=== PATIENT | female | born 1995 | race Caucasian/White ===

== ENCOUNTER 2019-09-25 11:26 | Emergency (ER) | payer OTHER, SELFPAY ==
--- NOTE | 2019-09-25 11:37 | DI.RAD.S_ITS ---
PROCEDURE: XR SOFT TISSUE NECK INDICATIONS: exernal anterior throat pain, sublingual px TECHNIQUE: 2 views of the neck were acquired. COMPARISON: None. FINDINGS: Airway: The airway appears patent. Soft tissues: Prevertebral soft tissues are normal in thickness. The epiglottis and aryepiglottic folds appear normal. No soft tissue gas. Bones: No suspicious bony lesions. Visualized cervical spine is normally aligned. IMPRESSION: Unremarkable exam. If concern persists, CT neck with contrast is recommended for further evaluation. Dictated by: Brittney Betts M.D. on 09/25/2019 at 12:10 Approved by: Brittney Betts M.D. on 09/25/2019 at 12:13
[2019-09-25 11:38] VITALS: BP 134/78; PULSE 72; RESP 14; TEMP 36.9; O2SAT 97; BMI 28.3
--- NOTE | 2019-09-25 11:41 | ED_ITS ---
HPI - Neck Pain/Injury <MATTHEW Sarmiento - Last Filed: 09/25/19 14:38> General Chief Complaint: Upper Respiratory Symptoms Stated Complaint: throat pain/tender to touch Time Seen by Provider: 09/25/19 11:30 History of Present Illness HPI Narrative: 23yo female who is currently breast-feeding, presents emergency department complaining of external anterior throat pain in sublingual pain for the past 2 days. Patient states the area is tender to touch. She denies any difficulty breathing, feelings of throat swelling, drooling, difficulty swallowing, wheezing, fevers, chills, nausea, vomiting, diarrhea, or any other concerns. She denies any trauma to the area. Patient denies any history of asthma or allergies. Patient states the pain is a constant dull aching and occasionally sharp stabbing the without aggravation by eating or swelling. Patient did note that when she woke up this morning she felt like her force was hoarse. Patient states she took Tylenol which has helped a small amount. Patient denies remembering anything being stuck in her throat, denies choking, or any other concerns. Patient denies any history of thyroid issues. Related Data Allergies Allergy/AdvReac Type Severity Reaction Status Date / Time amoxicillin Allergy Hives Verified 09/25/19 11:38 ciprofloxacin [From Cipro] Allergy Hives Verified 09/25/19 11:38 Penicillins Allergy Hives Verified 09/25/19 11:38 Review of Systems <MATTHEW Sarmiento - Last Filed: 09/25/19 14:38> Review of Systems Narrative: REVIEW OF SYSTEMS: GENERAL: Denies fevers. HENT: No head trauma or hearing loss. Complains of external throat pain, see HPI. EYES: No loss of vision, double vision, eye pain, irritation or discharge. CARDIOVASCULAR: No chest pain or syncope. RESPIRATORY: No shortness of breath. GASTROINTESTINAL: No nausea, vomiting, diarrhea, or constipation. MUSCULOSKELETAL: No weakness or injury. INTEGUMENTARY: No rash, lesions, or pruritus. NEURO: No memory loss, or confusion. Patient History <MATTHEW Sarmiento - Last Filed: 09/25/19 14:38> Medical History Renal calculi (Acute) Tonsillectomy planned (Acute) Social History Smoking Status: Never smoker Smoking Status: Never smoker Exam <MATTHEW Sarmiento - Last Filed: 09/25/19 14:38> Initial Vital Signs Initial Vital Signs: Vital Signs Temperature 98.4 F 09/25/19 11:38 Pulse Rate 72 09/25/19 11:38 Respiratory Rate 14 09/25/19 11:38 Blood Pressure 134/78 09/25/19 11:38 Pulse Oximetry 97 09/25/19 11:38 PHYSICAL EXAMINATION: GENERAL: Well groomed, alert, and cooperative. Answers questions promptly and appropriately. Vital signs noted. HENT: Normocephalic, atraumatic. Ear canals patent. Oropharynx slight erythema, Tonsils are not present. Uvula midline, pronates. Patient notes tenderness with palpation to the sublingual area and upper anterior throat. No lymphadenopathy. No thyroid nodules or swelling noted. No erythema to the skin. EYES: Conjunctiva pink, sclera white, no periorbital swelling. No discharge. CHEST: Normal to inspection and without deformities. CARDIOVASCULAR: S1 and S2 sounds normal. Regular rate and rhythm, no murmurs, clicks, or bruits. RESPIRATORY: Normal respiratory rate, trachea midline, airway patent. No stridor, nasal flaring or accessory muscle use. Able to speak in full sentences. Lungs are clear in all miller without wheeze, rhonchi, or crackles. Patient talks in a clear voice, no hoarseness noted. MUSCULOSKELETAL: Normal gait and coordination. Equal tone and mass bilaterally. EXTREMITIES: Moves all extremities. SKIN: Warm, dry, soft, appropriate color for ethnicity. No lesions, rashes, or wounds to visualized areas. NEURO: Alert and Oriented X 3. Good coordination. No ataxia or cognitive issues. PSYCH: Appropriate affect and mood. <Ric Stratton DO - Last Filed: 09/25/19 15:01> Initial Vital Signs Initial Vital Signs: Vital Signs Temperature 98.4 F 09/25/19 11:38 Pulse Rate 72 09/25/19 11:38 Respiratory Rate 14 09/25/19 11:38 Blood Pressure 134/78 09/25/19 11:38 Pulse Oximetry 97 09/25/19 11:38 Course <MATTHEW Sarmiento - Last Filed: 09/25/19 14:38> Orders Ordered: ED Orders 09/25/19 11:37 XR soft tissue neck Stat Vital Signs Vital signs: Vital Signs - 8 hr 09/25/19 11:38 09/25/19 12:50 Temperature 98.4 F 98.4 F Pulse Rate 72 78 Respiratory Rate 14 12 Blood Pressure 134/78 109/64 Pulse Oximetry 97 97 <Ric Stratton DO - Last Filed: 09/25/19 15:01> Orders Ordered: ED Orders 09/25/19 11:37 XR soft tissue neck Stat Vital Signs Vital signs: Vital Signs - 8 hr 09/25/19 11:38 09/25/19 12:50 Temperature 98.4 F 98.4 F Pulse Rate 72 78 Respiratory Rate 14 12 Blood Pressure 134/78 109/64 Pulse Oximetry 97 97 MDM - Neck Pain/Injury <MATTHEW Sarmiento - Last Filed: 09/25/19 14:38> Medical Records Attestation: I reviewed the patient's medical records. Lab Data Attestation: I reviewed the patient's lab results. Labs: Point of Care Testing Rapid Strep A Negative Imaging Data Xray Neck: Radiologist's Impression: [place] [address] XRay Report Signed Patient: Nika Sidhu R#: [id number] : 1995Acct:[id number] Age/Sex: 23 / FDate of Service: 09/25/19 Loc: ED Accession Number: [id number] Procedure: XR soft tissue neck Ordering Provider: Jazmine Hoffman PROCEDURE: XR SOFT TISSUE NECK INDICATIONS: exernal anterior throat pain, sublingual px TECHNIQUE: 2 views of the neck were acquired. COMPARISON: None. FINDINGS: Airway: The airway appears patent. Soft tissues: Prevertebral soft tissues are normal in thickness. The epiglottis and aryepiglottic folds appear normal. No soft tissue gas. Bones: No suspicious bony lesions. Visualized cervical spine is normally aligned. IMPRESSION: Unremarkable exam. If concern persists, CT neck with contrast is recommended for further evaluation. Dictated by: Brittney Betts M.D. on 09/25/2019 at 12:10 Approved by: Brittney Betts M.D. on 09/25/2019 at 12:13 MDM Narrative Medical decision making narrative: 23yo female complaining of external throat pain for the past few days. Unsure exact cause of pain however differential includes trauma from wearing a mask, contact dermatitis, and salivary gland stones. Less concern for airway compromise, thyroid disorder, or foreign body as soft tissue neck x-ray was nega tive for any suspicious findings, patient was able to swallow without any pain, no thyroid nodule or enlargement palpated, clear lung sounds without wheeze, patient maintaining secretions well. Less likely strep as POC strep was negative. Patient was encouraged to apply hydrocortisone cream to the area and 2nd hard candies to help with pain. Patient was encouraged to follow up with her primary care provider in 1 week for further evaluation. Very strict return precautions given for new or worsening symptoms. <Ric Stratton DO - Last Filed: 09/25/19 15:01> Lab Data Labs: Point of Care Testing Rapid Strep A Negative Discharge Plan Departure Patient Disposition: Home Clinical Impression: Pain in throat Discharge Date/Time: 09/25/19 12:51 Instructions: Parotitis Activity Restrictions/Additional Instructions: Thank you for entrusting me with your care today. As discussed, your strep test is negative and your x-ray does not show any concerning findings. I am unsure the exact cause of this pain. It is possible you may have a small stone or piece of food in your salivary glands that can cause this irritation. I recommend sucking on hard candies for the next few days to help with this. It is possible an external irritation from your mask may be causing this as well. Apply 1% hydrocortisone cream which can be purchased [id number] to the area 1 to 2 times a day for the next 5 days to help with this irritation. I recommend following up with your primary care provider in 1-2 weeks for further evaluation if symptoms continue. Please return emergency department immediately for any new or worsening symptoms such as difficulty breathing, throat swelling, difficulty swallowing, drooling, severe pain, high fevers, uncontrollable vomiting, or any other concerns. <Ric Stratton DO - Last Filed: 09/25/19 15:01> Cosign ED Attending Cosignature Attestation: Dr Stratton Co-Sign Statement: I was available for consultation during this patient's emergency department visit. This chart is signed by myself for administrative purposes only. I did not have direct contact with this patient during this visit. They were seen independently by the APC.
[2019-09-25 12:50] VITALS: BP 109/64; PULSE 78; RESP 12; TEMP 36.9; O2SAT 97
== END 2019-09-25 12:51 | disposition home or self-care (01) ==
PROVIDERS: Emergency Provider Nurse Practitioner
DX: R07.0 Pain in throat (principal)
CPT/HCPCS: 70360; 87880; 99283